=== PATIENT | female | born 1995 | race Caucasian/White ===

== ENCOUNTER 2016-05-15 18:36 | Emergency (ER) | payer BC ==
[2016-05-15 20:14] VITALS: BP 130/72
[2016-05-15] MEDS ORDERED: Fluorescein Sodium TOPICAL* 1 MG TEST ONE ×2 (20:41→20:45)
[2016-05-15] MEDS ORDERED: Tetracaine 0.5% OPTH.SOL 4 ML* 1 DROP BTL ONE (20:41)
--- NOTE | 2016-05-15 20:53 | UC ---
Eye Complaint HPI - HPI Summary HPI Summary: PATIENT PRESENTS TO WITH CC OF RIGHT EYE IRRITATION, REDNESS, AND PURULENT DRAINAGE SINCE THIS MORNING. SHE STATES THIS HAS BEEN PRESENT FOR ABOUT 2 WEEKS AND IS INTERMITTENT. WORSE IN THE AM AND BETTER DURING THE DAY. SHE ENDORSES PHOTOSENSITIVITY. SHE DENIES CHANCE OF STD/HERPES. DENIES BUMPS OR STYES AND STATES VISUAL ACUITY IS INTACT. - History of Current Complaint Chief Complaint: UCEye Stated Complaint: PINK EYE LEFT Time Seen by Provider: 05/15/16 20:35 Hx Obtained From: Patient Hx Last Menstrual Period: 04/23/16 ?: No Onset/Duration: Gradual Onset Timing: Constant Severity Initially: Moderate Severity Currently: Moderate Pain Intensity: 2 Pain Scale Used: 0-10 Numeric Location of Injury: Conjunctiva Character: Throbbing Aggravating Factor(s): Light, Contact Lens Alleviating Factor(s): Nothing Associated Signs And Symptoms: Positive: Photophobia, Drainage (Purulent) - Risk Factors Penetrating Injury Risk Factor: Negative Acute Glaucoma Risk Factors: Eye Inflammation Optic Artery Occlusion Risk Factors: Negative - Allergies/Home Medications Allergies/Adverse Reactions: Allergies Allergy/AdvReac Type Severity Reaction Status Date / Time seasonal Allergy Congestion Uncoded 05/15/16 20:14 PMH/Surg Hx/FS Hx/Imm Hx Previously Healthy: Yes - Surgical History Surgical History: Yes Surgery Procedure, Year, and Place: neck lymph node. wisdom teeth - Family History Known Family History: Positive: Unknown - she is not aware of any particular illnesses that run in her family - Social History Occupation: Employed Full-time Lives: With Family Alcohol Use: Occasionally Substance Use Type: None Smoking Status (MU): Never Smoked Tobacco - Immunization History Vaccination Up to Date: Yes Review of Systems Constitutional: Negative Skin: Negative Eyes: Drainage, Eye Redness, Photophobia ENT: Negative Respiratory: Negative Cardiovascular: Negative Musculoskeletal: Negative Neurological: Negative Psychological: Negative All Other Systems Reviewed And Are Negative: Yes Physical Exam Triage Information Reviewed: Yes Appearance: Well-Appearing, No Pain Distress, Well-Nourished Vital Signs: Initial Vital Signs Pulse 79 05/15/16 20:10 Resp 16 05/15/16 20:10 BP 130/72 05/15/16 20:10 Pulse Ox 100 05/15/16 20:10 Vital Signs Reviewed: Yes Eyes: Positive: Conjunctiva Inflamed, Discharge - MUCOPURULENT OF LEFT EYE ENT: Positive: Pharynx normal, TMs normal Dental Exam: Normal Neck exam: Normal Neck: Positive: Supple, Nontender, No Lymphadenopathy Respiratory Exam: Normal Respiratory: Positive: Chest non-tender, Lungs clear Cardiovascular Exam: Normal Cardiovascular: Positive: RRR Musculoskeletal Exam: Normal Musculoskeletal: Positive: Strength Intact, ROM Intact Neurological Exam: Normal Neurological: Positive: Alert Psychological: Positive: Normal Response To Family, Age Appropriate Behavior Skin Exam: Normal Procedures - Eye Procedure Alcaine Drops Administered: Yes - TETRACAINE WITH FLUOROSCEIN Eye Complaint Course/Dx - Course Course Of Treatment: REEVES LAMP USED FOR EXAMINATION. TETRACAINE AND FLUOROSCEIN STAIN APPLIED. PATIENT TOLERATED WELL. NO FB VISUALIZED. CONJUNCTIVA INJECTED. PHOTOSENSITIVITY. POLYMYXIN DROPS GIVEN HERE IN UC. PATIENT AGREES TO FOLLOW UP WITH [facility]. NO CONTACT USE, THROW OUT OLD CONTACTS AND USE DROPS EVERY 3 HOURS WHILE AWAKE FOR 7 DAYS. PATIENT AGREES TO DISCHARGE. - Differential Dx/Diagnosis Differential Diagnosis/HQI/PQRI: Conjunctivitis, Keratitis, Uveitis Provider Diagnoses: CONJUCNTIVITIS (BACTERIAL) Discharge - Discharge Plan Condition: Stable Disposition: HOME Patient Education Materials: Conjunctivitis (ED) Referrals: Bhavani Pickering MD [Primary Care Provider] - Additional Instructions: DROPS TO THE EYE EVERY 3 HOURS AND UP TO 6 TIMES DAILY FOLLOW UP WITH OPHTHALMOLOGY THROW OUT OLD CONTACTS DO NOT WEAR CONTACTS UNTIL THERE ARE NO SIGNS OF INFECTION.
[2016-05-15] MEDS ORDERED: Polymyx/Trimethoprim OPTH* 10 ML BTL LEFT EYE ONE (21:00)
[2016-05-15] MEDS ORDERED: Polymyx/Trimethoprim OPTH* 10 ML BTL LEFT EYE SCH (21:00)
== END 2016-05-15 21:11 | disposition home or self-care (01) ==
LOC: UCCORT 18:36
DX: H10.32 Unspecified acute conjunctivitis, left eye (principal)
CPT/HCPCS: 99212; A9270-GY; G0463